=== PATIENT | male | born 1965 | race Caucasian/White ===

== ENCOUNTER → 2016-10-12 | Outpatient (CLI) | payer OTHER ==
[~2016-10-12] MED LIST: DOLU1TAB PO; EFAV600T PO; TRAM-10 PO; TRAZ50TA35 PO; TRVHP PO; [UNRECOGNIZED DRUG - CODE] PO
[2016-10-12 12:50] LABS: BASO % 0.1 %; BASO ABS # 0.01 K/uL (0-0.2); COMPLETE YES; EOS % 1.6 %; HEMATOCRIT 43.2 % (42-52); IG% 0.1 %; LYMPH % 26.6 %; LYMPH ABS # 1.86 K/uL (1.2-3.4); MEAN CELL VOLUME 89.3 fL (80-100); MEAN CORPUSCULAR HEMOGLOBIN 30.8 pg (25-34); MEAN CORPUSCULAR HGB CONC 34.5 g/dl (32-36); MEAN PLATELET VOLUME 11.3 fL (7.4-10.4); NEUT % 65.6 %; PLATELET COUNT 136 K/uL (130-400); RED BLOOD COUNT 4.84 M/uL (4.7-6.1); WHITE BLOOD COUNT 6.99 K/uL (4.8-10.8)
[2016-10-12 13:12] LABS: ALT/SGPT 32 U/L (12-78); AST/SGOT 18 U/L (15-37); BLOOD UREA NITROGEN 15 mg/dl (7-18); BUN/CREATININE RATIO 12.2 (10-20); CALCIUM 8.8 mg/dl (8.5-10.1); CARBON DIOXIDE 29 mmol/L (21-32); CHLORIDE 103 mmol/L (98-107); GLUCOSE 100 mg/dl (70-99); POTASSIUM 3.9 mmol/L (3.5-5.1); SODIUM 140 mmol/L (136-145)
[2016-10-12 13:14] LABS: ALB/GLOB RATIO 1.4 (0.9-2); ALKALINE PHOSPHATASE 96 U/L (45-117); CHOLESTEROL 153 mg/dl (0-200); CHOLESTEROL/HDL RATIO 3.5; HDL CHOLESTEROL 44 mg/dl; LDL CHOLESTEROL CALCULATED 70 mg/dl; TRIGLYCERIDES 197 mg/dl (0-150); VERY LOW DENSITY LIPOPROT CALC 39 mg/dl
[2016-10-14 11:34] LABS: LSP % CELLS ANALYZED CD4 32 % (30-61); LSP ABSOLUTE CT CD4 572 cells/uL (490-1740); LSP LYMPHOCYTES ABSOLUTE 1804 cells/uL (850-3900)
== END | disposition home or self-care (01) ==
LOC: C.LABPBG 10:08
PROVIDERS: ATTEND Internal Medicine Infectious Disease
DX: B20 Human immunodeficiency virus [HIV] disease (principal)

== ENCOUNTER → 2016-12-16 | Day surgery (SDC) | payer OTHER ==
[2016-12-15 11:57] VITALS: Ht 185.4 cm; Wt 90.9 kg
[~2016-12-16] VITALS: Ht 185.4 cm; Wt 90.9 kg
[~2016-12-16] MED LIST changes: +ATROPINE SULFATE 0.1 MG/ML 5ML SYR IV PRN; -EFAV600T PO; +EpHEDrine SULFATE INJ 50 MG/ML AMP IV PRN; +LIDOCAINE HCL 2% 2 ML VIAL (20MG/ML) ONE; +MIDAZOLAM HCL 1 MG/ML 2ML VIAL ONE; +ONDANSETRON INJ 2 MG/ML 2 ML VIAL ONE; +PROPOFOL IV EMULSION 10 MG/ML 20 ML VIAL IV ONE; +SODIUM CHLORIDE 0.9% 500ML 500 ML IV ONE; -TRAM-10 PO; -TRAZ50TA35 PO; -[UNRECOGNIZED DRUG - CODE] PO
--- NOTE | 2016-12-16 09:22 | Endo History and Physical ---
History & Physical Date of Service: Dec 16, 2016. Chief Complaint: Screening Referring Physician: Bao Uriarte MD History of Present Illness 51 yo CM who presents for screening colonoscopy. Past Medical History Arthritis, Anxiety, Seizure Disorder, Depression Past Surgical History Hx Cardiac Surgery: No Hx Internal Defibrillator: No Hx Pacemaker: No Hx Abdominal Surgery: Yes (HERNIA REPAIR) Hx of Implantable Prosthesis: No Hx Post-Op Nausea and Vomiting: No Hx Cancer Surgery: No Hx Thoracic Surgery: No Hx Orthopedic: Yes (LT TKA, LT/RT KNEE SURGERY) Hx Urinary Tract Surgery: No Family History Colon CA Social History Smoking Status: Never Smoker Hx Substance Use: No Hx Alcohol Use: No Allergies Coded Allergies: Sulfamethoxazole w/Trimethoprim (Verified Allergy, Unknown, "FELT LIKE I WAS ROLLING AROUND IN GLASS AND ITCHING", 12/15/16) Current Medications Reported Home Medications Medications Dose Route/Sig Max Daily Dose Days Date Category Tivicay (Dolutegravir Sodium) 50 Mg Tab 50 Mg PO HS 11/01/15 Reported Truvada 200/300MG (Emtricitabine/Tenofovir) Tab 1 Tablet PO HS 05/10/09 Reported Vital Signs Weight (Kilograms): 90.91 Height (Feet): 6 Height (Inches): 1 Physical Exam General Appearance: WD/WN, no apparent distress Respiratory/Chest: Auscultation: breath sounds normal Cardiovascular: Heart Auscultation: RRR Abdomen: Bowel Sounds: normal Inspection & Palpation: soft, non-distended, no tenderness, guarding & rebound Assessment and Plan Assessment: 51 yo CM who presents for screening colonoscopy. Plan: Proceed with colonoscopy.
[2016-12-16 09:29] VITALS: TEMP 36.7
--- NOTE | 2016-12-16 11:16 | GI REPORT ---
Procedure Date: 12/16/2016 10:11 AM Procedure: Colonoscopy Indications: Screening for colorectal malignant neoplasm Medicines: Monitored Anesthesia Care Complications: No immediate complications. Estimated Blood Loss: Estimated blood loss: none. Procedure: Pre-Anesthesia Assessment: - Prior to the procedure, a History and Physical was performed, and patient medications and allergies were reviewed. The patient's tolerance of previous anesthesia was also reviewed. The risks and benefits of the procedure and the sedation options and risks were discussed with the patient. All questions were answered, and informed consent was obtained. Prior Anticoagulants: The patient has taken no previous anticoagulant or antiplatelet agents. ASA Grade Assessment: II - A patient with mild systemic disease. After reviewing the risks and benefits, the patient was deemed in satisfactory condition to undergo the procedure. After I obtained informed consent, the scope was passed under direct vision. Throughout the procedure, the patient's blood pressure, pulse, and oxygen saturations were monitored continuously. The scope was introduced through the anus and advanced to the terminal ileum. The colonoscopy was performed without difficulty. The patient tolerated the procedure well. The quality of the bowel preparation was good. The terminal ileum, ileocecal valve, appendiceal orifice, and rectum were photographed. Findings: A 4 mm polyp was found in the ascending colon. The polyp was sessile. The polyp was removed with a cold snare. Resection and retrieval were complete. Non-bleeding internal hemorrhoids were found during retroflexion. The hemorrhoids were small. Impression: - One 4 mm polyp in the ascending colon, removed with a cold snare. Resected and retrieved. - Non-bleeding internal hemorrhoids. Recommendation: - Resume previous diet. - Continue present medications. - Await pathology results. - Repeat colonoscopy for surveillance based on pathology results. - Return to primary care physician as previously scheduled. Jj Ellis DO 12/16/2016 11:15:17 AM This report has been signed electronically. Note Initiated On: 12/16/2016 10:11 AM I attest to the content of the Intraoperative Record and orders documented therein, exceptions below
[2016-12-16 11:21] VITALS: BP 104/66; PULSE 67; O2SAT 97
--- NOTE | 2016-12-16 11:22 | Anesthesiology Progress Note ---
Anesthesia Post Op Note Date & Time Dec 16, 2016 at 11:21 Vital Signs Pain Intensity: 0 Vital Signs Past 12 Hours Date Time Temp Pulse Resp B/P Pulse Ox O2 Delivery O2 Flow Rate FiO2 12/16/16 09:29 36.7 67 20 110/73 98 Room Air Notes Mental Status: alert / awake / arousable, participated in evaluation Pt Amnestic to Procedure: Yes Nausea / Vomiting: adequately controlled Pain: adequately controlled Airway Patency, RR, SpO2: stable & adequate BP & HR: stable & adequate Hydration State: stable & adequate Anesthetic Complications: no major complications apparent
--- NOTE | 2016-12-16 12:14 | Discharge Instructions ---
Endoscopy Patient Instructions Date / Procedure(s) Performed Dec 16, 2016. Colonoscopy Allergy Information Coded Allergies: Sulfamethoxazole w/Trimethoprim (Verified Allergy, Unknown, "FELT LIKE I WAS ROLLING AROUND IN GLASS AND ITCHING", 12/15/16) Discharge Date / Findings Dec 16, 2016. Colon polyp Internal hemorrhoids Provider Instructions Activity Restrictions - No exercising or heavy lifting for 24 hours. - Do not drink alcohol the day of the procedure. - Do not drive a car or operate machinery until the day after the procedure. - Do not make any important decisions or sign important papers in 24 hours after the procedure. Following Day: - Return to full activity which may include returning to work/school. Diet Start your diet with liquids and light foods (jello, soup, juice, toast). Then eat your usual diet if not nauseated. Treatment For Common After Affects For mild abdominal pain, bloating, or excessive gas: - Rest - Eat lightly - Lie on right side Follow-Up Information Follow-up with Dr. Bao Uriarte as scheduled Anesthesia Information What You Should Know You have had a procedure that required some medicine to reduce anxiety and discomfort. This treatment is called moderate sedation. After receiving the treatment, you may be sleepy, but you will be able to breathe on your own. The effects of the treatment may last for several hours. Follow these instructions along with Activity/Diet recommendations noted above: * Do NOT do anything where dizziness or clumsiness would be dangerous. * Rest quietly at home today, then you can be up and about tomorrow. * Have a responsible person stay with you the rest of today. * You may have had an I.V. today. If so, you may take the dressing off later today. Recommendations Call your doctor if: * Trouble breathing * Continuous vomiting for more than 24 hours * Temperature above 101 degrees * Severe abdominal pain or bloating * Pain not relieved by pain medicine ordered * There is increased drainage or redness from any incision * A large amount of rectal bleeding greater than 2-3 tablespoons. (If you had a polyp/s removed or have hemorrhoids, a small amount of blood - from the rectum is to be expected.) * You have any unanswered questions or concerns. IN THE EVENT OF A SERIOUS EMERGENCY, GO TO THE NEAREST EMERGENCY ROOM Your discharge instructions were prepared by provider Jj Ellis. Patient Instructions Signature Page Phi Pena Patient (or Guardian) Signature/Date: I have read and understand the instructions given to me by my caregivers. Caregiver/RN/Doctor Signature/Date: The above-named patient and/or guardian has received patient instructions on this date. + Original Patient Signature Page (only) stays with chart. Please make copy for patient.
== END | disposition home or self-care (01) ==
LOC: C.GI 08:51
PROVIDERS: ATTEND Internal Medicine
DX: Z12.11 Encounter for screening for malignant neoplasm of colon (principal); K63.5 Polyp of colon; K64.8 Other hemorrhoids; Z80.0 Family history of malignant neoplasm of digestive organs; M19.90 Unspecified osteoarthritis, unspecified site; F41.9 Anxiety disorder, unspecified; F32.9 Major depressive disorder, single episode, unspecified; Z98.890 Other specified postprocedural states; Z88.2 Allergy status to sulfonamides

== ENCOUNTER → 2016-12-21 | Outpatient (CLI) | payer OTHER ==
[~2016-12-21] MED LIST changes: -ATROPINE SULFATE 0.1 MG/ML 5ML SYR IV PRN; -EpHEDrine SULFATE INJ 50 MG/ML AMP IV PRN; -LIDOCAINE HCL 2% 2 ML VIAL (20MG/ML) ONE; -MIDAZOLAM HCL 1 MG/ML 2ML VIAL ONE; -ONDANSETRON INJ 2 MG/ML 2 ML VIAL ONE; -PROPOFOL IV EMULSION 10 MG/ML 20 ML VIAL IV ONE; -SODIUM CHLORIDE 0.9% 500ML 500 ML IV ONE
== END | disposition home or self-care (01) ==
LOC: C.LAB1850 11:09
PROVIDERS: ATTEND Internal Medicine Infectious Disease
DX: B20 Human immunodeficiency virus [HIV] disease (principal)

== ENCOUNTER → 2017-01-07 | Outpatient (CLI) | payer OTHER ==
[~2017-01-07] MED LIST changes: +OPTIRAY 320 IV PRN
--- NOTE | 2017-01-07 14:20 | DIAGNOSTIC IMAGING REPORT ---
CT OF THE ABDOMEN AND PELVIS WITH CONTRAST CLINICAL HISTORY: Left inguinal pain. Inguinal hernia. COMPARISON STUDY: CT of the abdomen and pelvis December 29, 2014. TECHNIQUE: Following IV administration of 94 mL of Optiray-320, axial images of the abdomen and pelvis were obtained from the lung bases to the proximal femurs. Images were reviewed in the axial, sagittal, and coronal planes. IV contrast was administered without complication. Oral contrast was administered. CT DOSE: 920.96 mGy.cm FINDINGS: A subcentimeter hypodense right hepatic lobe lesion is too small to characterize but is unchanged since exam of December 29, 2014. Borderline splenomegaly is unchanged. The adrenal glands, kidneys and pancreas are normal. There is no evidence for a bowel obstruction. The appendix is normal. There is no ascites. No lymphadenopathy is present. No inguinal hernia is identified by CT. There is slight asymmetric fat within the left inguinal canal. This is unchanged. IMPRESSION: 1. No acute process within the abdomen or pelvis. 2. Stable borderline splenomegaly. 3. No inguinal hernia identified by CT. Slight asymmetric fat within the left inguinal canal but no hernia identified. Electronically signed by: Peter Soto M.D. 01/07/2017 2:18 PM Dictated Date/Time: 01/07/2017 1:13 PM
== END | disposition home or self-care (01) ==
LOC: C.CTS 11:04
PROVIDERS: ATTEND Internal Medicine
DX: R10.30 Lower abdominal pain, unspecified (principal); K40.90 Unilateral inguinal hernia, without obstruction or gangrene, not specified as recurrent

== ENCOUNTER → 2017-08-17 | Outpatient (CLI) | payer OTHER ==
[~2017-08-17] MED LIST changes: -OPTIRAY 320 IV PRN
[2017-08-17 17:24] LABS: BASO % 0.3 %; BASO ABS # 0.02 K/uL (0-0.2); COMPLETE YES; EOS % 1.9 %; HEMATOCRIT 40.9 % (42-52); IG% 0.2 %; LYMPH ABS # 1.87 K/uL (1.2-3.4); MEAN CELL VOLUME 88.3 fL (80-100); MEAN CORPUSCULAR HEMOGLOBIN 30.9 pg (25-34); MONO % 5.4 %; NEUT % 62.2 %; PLATELET COUNT 146 K/uL (130-400); RED BLOOD COUNT 4.63 M/uL (4.7-6.1); WHITE BLOOD COUNT 6.24 K/uL (4.8-10.8)
[2017-08-17 17:34] LABS: ALT/SGPT 32 U/L (12-78); AST/SGOT 19 U/L (15-37); BLOOD UREA NITROGEN 14 mg/dl (7-18); CALCIUM 8.8 mg/dl (8.5-10.1); CARBON DIOXIDE 26 mmol/L (21-32); CHLORIDE 107 mmol/L (98-107); CREATININE 1.09 mg/dl (0.60-1.40); GLUCOSE 84 mg/dl (70-99); POTASSIUM 3.7 mmol/L (3.5-5.1); SODIUM 137 mmol/L (136-145)
[2017-08-17 17:37] LABS: ALB/GLOB RATIO 1.4 (0.9-2); ALKALINE PHOSPHATASE 90 U/L (45-117); CHOLESTEROL 158 mg/dl (0-200); HDL CHOLESTEROL 52 mg/dl; LDL CHOLESTEROL CALCULATED 87 mg/dl; TRIGLYCERIDES 97 mg/dl (0-150); VERY LOW DENSITY LIPOPROT CALC 19 mg/dl
[2017-08-23 10:32] LABS: LSP % CELLS ANALYZED CD4 36 % (30-61); LSP ABSOLUTE CT CD4 625 cells/uL (490-1740); LSP LYMPHOCYTES ABSOLUTE 1758 cells/uL (850-3900)
== END | disposition home or self-care (01) ==
LOC: C.LABBC 13:58
PROVIDERS: ATTEND Internal Medicine Infectious Disease
DX: B20 Human immunodeficiency virus [HIV] disease (principal)

== ENCOUNTER → 2018-01-25 | Outpatient (CLI) | payer OTHER ==
[2018-01-25 12:37] LABS: BASO % 0.4 %; BASO ABS # 0.02 K/uL (0-0.2); EOS % 2.1 %; EOS ABS # 0.11 K/uL (0-0.5); HEMATOCRIT 41.2 % (42-52); HEMOGLOBIN 14.6 g/dL (14.0-18.0); IG# 0.01 K/uL (0.00-0.02); LYMPH % 33.1 %; LYMPH ABS # 1.77 K/uL (1.2-3.4); MEAN CELL VOLUME 86.6 fL (80-100); MEAN CORPUSCULAR HEMOGLOBIN 30.7 pg (25-34); MEAN CORPUSCULAR HGB CONC 35.4 g/dl (32-36); MEAN PLATELET VOLUME 10.3 fL (7.4-10.4); MONO % 6.2 %; MONO ABS # 0.33 K/uL (0.11-0.59); PLATELET COUNT 134 K/uL (130-400); RED CELL DISTRIBUTION WIDTH CV 12.9 % (11.5-14.5); RED CELL DISTRIBUTION WIDTH SD 41.1 fL (36.4-46.3); WHITE BLOOD COUNT 5.34 K/uL (4.8-10.8)
[2018-01-25 12:52] LABS: ALBUMIN 4.2 gm/dl (3.4-5.0); ALKALINE PHOSPHATASE 102 U/L (45-117); ALT/SGPT 31 U/L (12-78); AST/SGOT 14 U/L (15-37); BLOOD UREA NITROGEN 12 mg/dl (7-18); CALCIUM 9.2 mg/dl (8.5-10.1); CARBON DIOXIDE 26 mmol/L (21-32); CREATININE 1.24 mg/dl (0.60-1.40); GLUCOSE 112 mg/dl (70-99); POTASSIUM 4.1 mmol/L (3.5-5.1); SODIUM 141 mmol/L (136-145); TOTAL PROTEIN 7.9 gm/dl (6.4-8.2)
== END | disposition home or self-care (01) ==
LOC: C.LAB1850 01-13 14:41
PROVIDERS: ATTEND Internal Medicine Infectious Disease
DX: B20 Human immunodeficiency virus [HIV] disease (principal)

== ENCOUNTER → 2018-04-28 | Outpatient (CLI) | payer OTHER ==
[~2018-04-28] MED LIST changes: +ATV1 PO; +TRV PO
== END | disposition home or self-care (01) ==
LOC: C.LAB 20:52
DX: Z02.83 Encounter for blood-alcohol and blood-drug test (principal)

== ENCOUNTER 2018-04-29 13:53 | Emergency (ER) | payer OTHER ==
[~2018-04-29 13:53] MED LIST changes: -ATV1 PO; -DOLU1TAB PO; -TRV PO
[2018-04-29 14:01] VITALS: TEMP 36.9
[2018-04-29 14:19] VITALS: O2SAT 95
[2018-04-29] MEDS ORDERED: SODIUM CHLORIDE 0.9% 1000ML 1,000 ML IV ONE (14:30)
[2018-04-29 14:36] LABS: BASO % 0.4 %; BASO ABS # 0.05 K/uL (0-0.2); EOS % 1.7 %; EOS ABS # 0.19 K/uL (0-0.5); HEMATOCRIT 49.4 % (42-52); HEMOGLOBIN 17.2 g/dL (14.0-18.0); IG# 0.05 K/uL (0.00-0.02); LYMPH % 32.5 %; LYMPH ABS # 3.67 K/uL (1.2-3.4); MEAN CELL VOLUME 87.3 fL (80-100); MEAN CORPUSCULAR HEMOGLOBIN 30.4 pg (25-34); MEAN CORPUSCULAR HGB CONC 34.8 g/dl (32-36); MEAN PLATELET VOLUME 10.1 fL (7.4-10.4); MONO % 6.1 %; MONO ABS # 0.69 K/uL (0.11-0.59); NEUT % 58.9 %; NEUT ABS # 6.65 K/uL (1.4-6.5); PLATELET COUNT 213 K/uL (130-400); RED CELL DISTRIBUTION WIDTH CV 12.7 % (11.5-14.5); RED CELL DISTRIBUTION WIDTH SD 40.6 fL (36.4-46.3)
--- NOTE | 2018-04-29 14:44 | EMERGENCY ROOM VISIT NOTE ---
History First contact with patient: 14:09 (Jigna Kidd PA-C) First contact with patient: 14:11 (Oz Fernández M.D.) Chief Complaint: OVERDOSE (ACCIDENTAL) Stated Complaint: AMS Nursing Triage Summary: devi was found by police in the middle of the street in [place]. patient stated to EMS that he smoked some medical marajuana that may have been laced. patient stated to RN "I think I took some ecstacy" RN asked patient how tall he was patient states 8'3. patient asking nurse if she smokes crystal meth, RN stated no, do you? Patient states, "I would like to." wallet,vap, shorts and shoes placed in bag at nurses station. (Jigna Kidd PA-C) History of Present Illness The patient is a 53 year old male who presents to the Emergency Room with complaints of altered mental status. The patient was found by police lying on the street in [place]. EMS was notified. The patient is significantly altered; therefore, the history is somewhat limited. He does admit to smoking medical marijuana earlier today. He says that "it was not very good." He thinks that it may have been laced with something. He did not admit to any other drug use during my questions, however he did state that he possibly did ecstasy to the RN. He does admit to drinking alcohol earlier today. He is unable to tell me what and how much she was drinking. The patient is currently denying any suicidal or homicidal ideation. He admits that he is having trouble with his father. Denies any current pain. (Jigna Kidd PA-C) Review of Systems 10 system review performed and negative unless noted in HPI or below (Jigna Kidd PA-C) Past Medical/Surgical History Medical Problems: (1) Anxiety (2) Arthritis of knee (3) Bipolar 1 disorder (4) Depression (5) HIV (human immunodeficiency virus infection) (Oz Fernández M.D.) Family History Patient reports no known family medical history. (Jigna Kidd PA-C) Patient reports no known family medical history. (Oz Fernández M.D.) Social History Smoking Status: Never Smoker Alcohol Use: none Drug Use: none Marital Status: single Housing Status: other Occupation Status: unemployed ([employer], Jigna Aguilar PA-C) Current/Historical Medications Scheduled Dolutegravir Sodium (Tivicay), 50 MG PO HS Emtricitabine/Temofovir (Truvada 200-300 mg), 1 TAB PO HS Lorazepam (Lorazepam), 1 MG PO UD Physical Exam Vital Signs Date Time Temp Pulse Resp B/P (MAP) Pulse Ox O2 Delivery O2 Flow Rate FiO2 04/29/18 21:12 95 12 107/73 95 04/29/18 17:42 102 102/72 96 04/29/18 16:31 114/87 04/29/18 16:00 136/83 04/29/18 15:37 89 20 113/75 94 Room Air 04/29/18 15:36 113/75 04/29/18 14:53 107 14 04/29/18 14:23 104 11 93 04/29/18 14:19 95 Room Air 04/29/18 14:10 116 04/29/18 14:01 36.9 105 18 115/87 94 Room Air 04/29/18 13:57 115/87 (Oz Fernández M.D.) Physical Exam VITALS: Vitals are noted on the nurse's note and reviewed by myself. Vital signs stable. GENERAL: 53-year-old male, resting in a prone position. Speech is slurred., in no acute distress, nondiaphoretic, well-developed well-nourished. SKIN: The skin was warm and dry. No ecchymosis. HEAD: Normocephalic atraumatic. No signs of trauma. EYES: Pupils equal round and reactive to light and accommodation. Conjunctivae without injection, sclerae without icterus. Extraocular movements intact. MOUTH: Mucous membranes very dry NECK: . Cervical spine is nontender. No JVD. HEART: Slightly tachycardic, regular rhythm without murmurs gallops or rubs. LUNGS: Clear to auscultation bilaterally without wheezes, rales or rhonchi. No accessory muscle use. ABDOMEN: Positive bowel sounds x 4.Soft, MUSCULOSKELETAL: No muscle atrophy, erythema, or edema noted. No tenderness to palpation over the upper or lower extremities noted.. Strength 5/5 throughout. NEURO: Patient was alert to person only. He is moving all of his extremities without difficulty. He is not following commands. (Jigna Kidd PA-C) Medical Decision & Procedures Laboratory Results 04/29/18 13:25 Red Blood Count 5.66, Mean Corpuscular Volume 87.3, Mean Corpuscular Hemoglobin 30.4, Mean Corpuscular Hemoglobin Concent 34.8, Mean Platelet Volume 10.1, Neutrophils (%) (Auto) 58.9, Lymphocytes (%) (Auto) 32.5, Monocytes (%) (Auto) 6.1, Eosinophils (%) (Auto) 1.7, Basophils (%) (Auto) 0.4, Neutrophils # (Auto) 6.65, Lymphocytes # (Auto) 3.67, Monocytes # (Auto) 0.69, Eosinophils # (Auto) 0.19, Basophils # (Auto) 0.05 04/29/18 13:25 Test 04/29/18 13:25 04/29/18 14:37 04/29/18 16:55 White Blood Count 11.30 K/uL (4.8-10.8) Red Blood Count 5.66 M/uL (4.7-6.1) Hemoglobin 17.2 g/dL (14.0-18.0) Hematocrit 49.4 % (42-52) Mean Corpuscular Volume 87.3 fL (80-100) Mean Corpuscular Hemoglobin 30.4 pg (25-34) Mean Corpuscular Hemoglobin Concent 34.8 g/dl (32-36) Platelet Count 213 K/uL (130-400) Mean Platelet Volume 10.1 fL (7.4-10.4) Neutrophils (%) (Auto) 58.9 % Lymphocytes (%) (Auto) 32.5 % Monocytes (%) (Auto) 6.1 % Eosinophils (%) (Auto) 1.7 % Basophils (%) (Auto) 0.4 % Neutrophils # (Auto) 6.65 K/uL (1.4-6.5) Lymphocytes # (Auto) 3.67 K/uL (1.2-3.4) Monocytes # (Auto) 0.69 K/uL (0.11-0.59) Eosinophils # (Auto) 0.19 K/uL (0-0.5) Basophils # (Auto) 0.05 K/uL (0-0.2) RDW Standard Deviation 40.6 fL (36.4-46.3) RDW Coefficient of Variation 12.7 % (11.5-14.5) Immature Granulocyte % (Auto) 0.4 % Immature Granulocyte # (Auto) 0.05 K/uL (0.00-0.02) Anion Gap 11.0 mmol/L (3-11) Estimated GFR () 81.7 Estimated GFR (Non- 70.5 BUN/Creatinine Ratio 10.4 (10-20) Calcium Level 8.4 mg/dl (8.5-10.1) Total Bilirubin 0.5 mg/dl (0.2-1) Aspartate Amino Transf (AST/SGOT) 29 U/L (15-37) Alanine Aminotransferase (ALT/SGPT) 36 U/L (12-78) Alkaline Phosphatase 102 U/L (45-117) Total Protein 8.3 gm/dl (6.4-8.2) Albumin 4.4 gm/dl (3.4-5.0) Globulin 3.9 gm/dl (2.5-4.0) Albumin/Globulin Ratio 1.1 (0.9-2) Salicylates Level < 1.7 mg/dl (2.8-20) Acetaminophen Level < 2 ug/ml (10-30) Ethyl Alcohol mg/dL 410.4 mg/dl (0-3) Urine Opiates Screen NEG (NEG) Urine Methadone, Qualitative NEG (NEG) Urine Barbiturates NEG (NEG) Urine Phencyclidine (PCP) Level NEG (NEG) Ur Amphetamine/Methamphetamine NEG (NEG) MDMA (Ecstasy) Screen NEG (NEG) Urine Benzodiazepines Screen NEG (NEG) Urine Cocaine Metabolite NEG (NEG) Urine Marijuana (THC) POS (NEG) (Oz Fernández M.D.) Medications Administered Medications (Trade) Dose Ordered Sig/Jeffry Route Start Time Stop Time Status Last Admin Dose Admin Sodium Chloride 1,000 ml @ 999 mls/hr Q1H1M ONCE IV 04/29/18 14:30 04/29/18 15:30 DC 04/29/18 14:43 999 MLS/HR Ondansetron HCl (Zofran Odt) 4 mg NOW STAT PO 04/29/18 20:19 04/29/18 20:20 DC 04/29/18 20:27 4 MG (Oz Fernández M.D.) ECG Per My Interpretation Indication: other Rate (beats per minute): 99 Rhythm: normal sinus Findings: PVC Change: no significant change (Jigna Kidd PA-C) ED Course Patient was seen and examined Vital signs including blood pressure were reviewed medications list was verified with patient Labs were obtained, and a saline lock was established An EKG was performed and reviewed by myself. He was put on a monitor. He was hydrated with 1 L of normal saline. The patient was also seen and examined by my supervising physician The patient did unfortunately pull out his IV I had a long conversation with the patient's The patient was also seen and examined by the psychiatric liaison. The patient did sober up in the emergency department. He was observed in the emergency department for approximately 7 hours. I believe this point, he is stable to be discharged home in the care of his I reviewed discharge instructions the patient. They voiced understanding and had no further questions. (Jigna Kidd PA-C) Medical Decision Differential diagnosis: Drug/alcohol overdose, trauma, bipolar disorder, depression, anxiety, homicidal versus suicidal thoughts, among others were entertained This patient is a 53-year-old male that was brought to the emergency department via BLS after being found lying down on the road in [place]. On exam, he was altered. He did not have any signs of trauma. His workup reveals a significantly elevated alcohol level, which is likely the source of his AMS. The patient does admit a history of binge drinking. He does not have any suicidal or homicidal thoughts. His vital signs are stable. The patient was also evaluated by the psychiatric liaison who provided outpatient counseling options. The patient's came to the emergency department. He is able to take the patient home, which I believe is reasonable. He was encouraged to follow-up as an outpatient with his primary care physician in addition to counseling. He will try to abstain from alcohol use. This chart was completed in part utilizing [employer] Voice Recognition software. Attempts were made to minimize the grammatical errors, random word insertions, pronoun errors and incomplete sentences. Any formal questions or concerns about the content, text or information contained within the body of this dictation should be directly addressed to the provider for clarification. (Jigna Kidd PA-C) The patient was seen and examined by myself in conjunction with the advanced care provider. I agree with the history, physical and findings as documented. Please see the note for disposition and details. (Oz Fernández M.D.) Blood Pressure Screening Patient's blood pressure: Normal blood pressure (Jigna Kidd PA-C) Impression Primary Impression: Alcohol overdose Departure Information Dispostion Home / Self-Care Condition GOOD Referrals No Doctor, Assigned (PCP) Carl Palmer D.O. Patient Instructions [facility] Additional Instructions You have been evaluated in the emergency department after being brought in by EMS. Your alcohol level was significantly elevated. Please abstain from alcohol. Please follow-up with your primary care physician and the resources provided in the emergency department for further care and support try to stay well-hydrated. Increase fluids over the next 48 hours. Do not hesitate to return to the emergency department with any new, worsening or concerning symptoms; especially, chest pain, difficulty breathing or thoughts of harming yourself or others It was a pleasure participating in your care today
[2018-04-29 14:58] LABS: ALBUMIN 4.4 gm/dl (3.4-5.0); ALKALINE PHOSPHATASE 102 U/L (45-117); ALT/SGPT 36 U/L (12-78); AST/SGOT 29 U/L (15-37); BLOOD UREA NITROGEN 12 mg/dl (7-18); CALCIUM 8.4 mg/dl (8.5-10.1); CARBON DIOXIDE 22 mmol/L (21-32); CREATININE 1.16 mg/dl (0.60-1.40); GLUCOSE 129 mg/dl (70-99); POTASSIUM 3.6 mmol/L (3.5-5.1); SODIUM 141 mmol/L (136-145); TOTAL PROTEIN 8.3 gm/dl (6.4-8.2)
[2018-04-29] MEDS ORDERED: TRV PO (15:47)
[2018-04-29] MEDS ORDERED: ATV1 PO (15:47)
[2018-04-29] MEDS ORDERED: DOLU1TAB PO (19:35)
[2018-04-29] MEDS ORDERED: ONDANSETRON 4MG OD TAB PO STA (20:19)
[2018-04-29 21:12] VITALS: BP 107/73; PULSE 95; O2SAT 95
== END 2018-04-29 21:13 | disposition home or self-care (01) ==
LOC: EDBD 13:53 → C.EDB 13:55
DX: T51.91XA Toxic effect of unspecified alcohol, accidental (unintentional), initial encounter (principal); X58.XXXA Exposure to other specified factors, initial encounter; F12.90 Cannabis use, unspecified, uncomplicated; B20 Human immunodeficiency virus [HIV] disease; F41.9 Anxiety disorder, unspecified; F31.9 Bipolar disorder, unspecified; F32.9 Major depressive disorder, single episode, unspecified; Z79.899 Other long term (current) drug therapy